=== PATIENT | male | born 1985 | race Hispanic/Latino ===

== ENCOUNTER 2017-08-07 09:06 | Emergency (ER) | payer BC ==
--- NOTE | 2017-08-07 09:57 | CT ---
HEAD CT NONCONTRAST: CLINICAL HISTORY: Head injury, pain. FINDINGS: No evidence of intracranial hemorrhage, mass effect, midline shift, or ventriculomegaly. There is a focal left temporoparietal scalp hematoma. Correlate clinically. No underlying displaced calvarial fracture. IMPRESSION: No evidence of acute intracranial hemorrhage or mass effect. POS: [facility]
== END 2017-08-07 11:30 | disposition home or self-care (01) ==
LOC: ERS 09:06
DX: S00.03XA Contusion of scalp, initial encounter (principal); V45.9XXA Unspecified car occupant injured in collision with railway train or railway vehicle in traffic accident, initial encounter
CPT/HCPCS: 70450